=== PATIENT | female | born 1975 ===

== ENCOUNTER 2016-07-26 20:38 | Emergency (ER) | payer MEDICAID, OTHER ==
[2016-07-26 20:57] VITALS: BMI 32.9
[2016-07-26 20:59] VITALS: TEMP 98.3
[2016-07-26] MEDS ORDERED: Sodium Chloride 0.9% 1,000 ML IV STA (21:42)
--- NOTE | 2016-07-26 21:48 | ED PDOC ---
Arrival/HPI - General Historian: Patient - History of Present Illness Time/Duration: 24 hours Symptom Onset: Gradual Symptom Course: Intermittent Quality: Aching, Pressure, Tightness Severity Level: 7 Activities at Onset: Rest Context: Sitting <Kolby Coburn - Last Filed: 07/26/16 21:52> <KavitaDoug - Last Filed: 07/26/16 22:53> - General Chief Complaint: Headache Time Seen by Provider: 07/26/16 21:12 - History of Present Illness Narrative History of Present Illness (Text): 07/26/16 21:44 40 F with PMHx of migraines presents to [facility] [place] ED with complaints of migraine with associated n/v and photophobia. Pt describes that she has similar episodes of migraines 1-2/week, however she became concerned when her face became red and "tight", a sensation she has not experienced with her migraines, prompting her to seek medical attention. Pt claims her headache is predominately located in the posterior of her head and radiates to the front. Pt reports that she usually takes Tylenol or Excedrin for symptomatic relief, however has not alleviated her symptoms at this time. Pt admits to photophobia, nausea and total of 3 episodes of emesis. Pt denied fever, chills, loc, focal neurological deficits, weakness, blurry vision, lacrimation, sob, chest pain, palpitations, abdominal pains, d/c or urinary symptoms. PMD: Dr. Plascencia (Kolby Coburn) Past Medical History - Infectious Disease Hx of Infectious Diseases: None - Tetanus Immunization Tetanus Immunization: Unknown - Past Medical History Past Medical History: No Previous - Cardiac Hx Cardiac Disorders: No - Pulmonary Hx Respiratory Disorders: No - Neurological Hx Migraine: Yes - HEENT Hx HEENT Disorder: No - Renal Hx Renal Disorder: No - Endocrine/Metabolic Hx Endocrine Disorders: No - Hematological/Oncological Hx Blood Disorders: No - Integumentary Hx Dermatological Disorder: No - Musculoskeletal/Rheumatological Hx Musculoskeletal Disorders: No - Gastrointestinal Hx Gastrointestinal Disorders: No - Genitourinary/Gynecological Hx Genitourinary Disorders: No - Psychiatric Hx Psychophysiologic Disorder: No Hx Depression: No Hx Emotional Abuse: No Hx Physical Abuse: No Hx Substance Use: No - Past Surgical History Past Surgical History: No Previous - Anesthesia Hx Anesthesia: No Hx Anesthesia Reactions: No Hx Malignant Hyperthermia: No - Suicidal Assessment Feels Threatened In Home Enviroment: No <Kolby Coburn - Last Filed: 07/26/16 21:52> Family/Social History Family/Social History: No Known Family HX Smoking Status: Never Smoked Hx Alcohol Use: No Hx Substance Use: No Hx Substance Use Treatment: No <Kolby Coburn - Last Filed: 07/26/16 21:52> Allergies/Home Meds <Kolby Coburn - Last Filed: 07/26/16 21:52> <Doug Walls - Last Filed: 07/26/16 22:53> Allergies/Adverse Reactions: Allergies No Known Allergies Allergy (Verified 03/16/14 19:49) Review of Systems - Review of Systems Constitutional: absent: Fatigue, Weight Change, Fevers Eyes: Photophobia. absent: Vision Changes ENT: absent: Hearing Changes, Tinnitus, Rhinorrhea Respiratory: absent: SOB, Cough, Sputum Cardiovascular: absent: Chest Pain, Palpitations, Edema, Syncope Gastrointestinal: Nausea, Vomiting. absent: Abdominal Pain, Stool Changes, Constipation, Diarrhea Genitourinary Female: absent: Dysuria, Frequency, Hematuria Skin: absent: Rash, Pruritis Neurological: Headache. absent: Dizziness, Focal Weakness, Gait Changes, Speech Changes, Facial Droop Endocrine: absent: Diaphoresis <Kolby Coburn - Last Filed: 07/26/16 21:52> Physical Exam Temperature: Afebrile Blood Pressure: Normal Pulse: Regular Respiratory Rate: Normal Appearance: Positive for: Well-Appearing, Non-Toxic, Comfortable Pain Distress: None Mental Status: Positive for: Alert and Oriented X 3 - Systems Exam Head: Present: Atraumatic, Normocephalic Pupils: Present: PERRL Extroacular Muscles: Present: EOMI Conjunctiva: Present: Normal Mouth: Present: Moist Mucous Membranes Neck: Present: Normal Range of Motion Respiratory/Chest: Present: Clear to Auscultation, Good Air Exchange. No: Respiratory Distress, Accessory Muscle Use Cardiovascular: Present: Regular Rate and Rhythm, Normal S1, S2. No: Murmurs Abdomen: Present: Normal Bowel Sounds. No: Tenderness, Distention, Peritoneal Signs Upper Extremity: Present: Normal Inspection. No: Cyanosis, Edema Lower Extremity: Present: Normal Inspection. No: Edema Neurological: Present: GCS=15, CN II-XII Intact, Speech Normal Skin: Present: Warm, Dry, Normal Color. No: Rashes Psychiatric: Present: Alert, Oriented x 3, Normal Insight, Normal Concentration <Kolby Coburn - Last Filed: 07/26/16 21:52> Vital Signs Temp Pulse Resp BP Pulse Ox 07/26/16 21:40 81 18 129/81 99 07/26/16 20:57 98.3 F 79 16 100 Medical Decision Making <Kolby Coburn - Last Filed: 07/26/16 21:52> <Doug Walls - Last Filed: 07/26/16 22:53> ED Course and Treatment: 07/26/16 21:50 40 F with pMHx of migraines presents with a migraine. - CBC - CMP - UA - EKG - CTH - IVF - Toradol - Reglan - Reassess and dispo (Kolby Coburn) 07/26/16 21:55 Patient Seen With Resident: In agreement with resident note which contains more details about the patient. Patient was seen and evaluated with resident. Came up with plan and treatment together. Patient has prior history of migraine headaches. Patient states since she was a child she developed posterior headaches, radiating to the front. Patient states today's headache was typical of past headaches except with facial swelling. Patient states the facial swelling has since resolved, but reports persistent headache. Given the change in the character of the headache, will get Head CT, IV fluids, Toradol, Reglan, and check labs. Patient currently afebrile and neurologically intact. 07/26/16 22:50 Re-examination. Headache completely resolved. No fever. No trauma. No swelling. No neuro deficits. CT unremarkable for acute process as per radiologist. Have discussed findings and treatment plan with patient, advised follow-up with PMD and neurology. (Doug Walls) - Lab Interpretations Lab Results: 07/26/16 21:56 07/26/16 21:56 Lab Results 07/26/16 21:56: WBC 9.7 D, RBC 3.94, Hgb 10.4 L, Hct 32.3 L, MCV 82.0, MCH 26.4 , MCHC 32.2, RDW 13.8, Plt Count 334, MPV 10.1, Gran % 61.2, Lymph % (Auto) 30.7 , Erath % (Auto) 6.9 H, Eos % (Auto) 0.8 L, Baso % (Auto) 0.4, Gran # 5.93, Lymph # 3.0, Erath # 0.7 H, Eos # 0.1, Baso # 0.04, Sodium 141, Potassium 3.7, Chloride 104, Carbon Dioxide 29, Anion Gap 12, BUN 17, Creatinine 0.9, Est GFR ( Amer) > 60, Est GFR (Non-Af Amer) > 60, Random Glucose 120 H, Calcium 8.6, Total Bilirubin 0.2, AST 21, ALT 19, Alkaline Phosphatase 73, Total Protein 7.2, Albumin 3.6, Globulin 3.6, Albumin/Globulin Ratio 1.0 L 07/26/16 21:42: Urine Color yellow, Urine Appearance Clear, Urine pH 6.0, Ur Specific Hyder 1.025, Urine Protein Trace H, Urine Glucose (UA) Negative, Urine Ketones Negative, Urine Blood Large H, Urine Nitrate Negative, Urine Bilirubin Negative, Urine Urobilinogen 0.2, Ur Leukocyte Esterase Negative, Urine RBC Tntc, Urine WBC 2 - 5, Ur Epithelial Cells 6 - 8 - RAD Interpretation Radiology Orders: 07/26/16 21:39 HEAD W/O CONTRAST [CT] Stat - Medication Orders Current Medication Orders: Discontinued Medications Sodium Chloride (Sodium Chloride 0.9%) 1,000 mls @ 999 mls/hr IV .Q1H1M STA Stop: 07/26/16 22:42 Last Admin: 07/26/16 22:03 Dose: 999 MLS/HR eMAR Start Stop Document 07/26/16 22:03 SD (Rec: 07/26/16 22:03 SD [id number]) Intravenous Solution Start Date 07/26/16 Start Time 22:03 Ketorolac Tromethamine (Toradol) 30 mg IVP STAT STA Stop: 07/26/16 21:40 Last Admin: 07/26/16 22:02 Dose: 30 MG IVP Administration Document 07/26/16 22:02 SD (Rec: 07/26/16 22:03 SD [id number]) Charges for Administration # of IVP Administrations 1 Metoclopramide HCl (Reglan) 10 mg IVP STAT STA Stop: 07/26/16 21:40 Last Admin: 07/26/16 22:02 Dose: 10 MG IVP Administration Document 07/26/16 22:02 SD (Rec: 07/26/16 22:02 SD [id number]) Charges for Administration # of IVP Administrations 1 Disposition/Present on Arrival - Present on Arrival Any Indicators Present on Arrival: No History of DVT/PE: No History of Uncontrolled Diabetes: No Urinary Catheter: No History of Decub. Ulcer: No History Surgical Site Infection Following: None <Kolby Coburn - Last Filed: 07/26/16 21:52> - Present on Arrival Any Indicators Present on Arrival: No - Disposition Have Diagnosis and Disposition been Completed?: Yes Disposition Time: 22:51 Patient Plan: Discharge <Doug Walls - Last Filed: 07/26/16 22:53> - Disposition Diagnosis: Headache Disposition: HOME/ ROUTINE Patient Problems: Current Active Problems Problem Status Diagnosed Migraine Acute Condition: GOOD Discharge Instructions (ExitCare): Acute Headache (ED) Additional Instructions: For any return of headache, any facial swelling, any lip or tongue swelling, any rash, any shortness of breath, any visual symptoms, any numbness or weakness , any fever, any change or worsening of any symptoms, get rechecked immediately. Follow-up with your primary care doctor as well as a neurologist for your history of headaches. Prescriptions: Metoclopramide [Reglan] 10 mg PO BID PRN #8 tab PRN Reason: Headache Referrals: Josette Jacobo MD [Primary Care Provider] - Follow up with primary Alfred Arreola MD [Staff Provider] - Follow up with primary
[2016-07-26 21:57] LABS: ADD MANUAL DIFF? NO
[2016-07-26 22:00] LABS: BASO # 0.04 K/mm3 (0.0-2.0); BASO % 0.4 % (0.0-3.0); EOS # 0.1 (0.0-0.7); EOS % 0.8 % (1.5-5.0); GRAN # 5.93 (1.4-6.5); GRAN % 61.2 % (50.0-68.0); HEMATOCRIT 32.3 % (36.0-48.0); LYMPH % 30.7 % (22.0-35.0); MEAN CORPUSCULAR HEMOGLOBIN 26.4 pg (25.0-35.0); MEAN CORPUSCULAR HGB CONC 32.2 g/dl (31.0-37.0); MEAN PLATELET VOLUME 10.1 fl (7.0-11.0); MONO # 0.7 (0.1-0.6); MONO % 6.9 % (1.0-6.0); PLATELET COUNT 334 10^3/uL (120.0-450.0); RED CELL DISTRIBUTION WIDTH 13.8 % (11.5-14.5); WHITE BLOOD COUNT 9.7 10^3/ul (4.5-11.0)
[2016-07-26 22:07] LABS: URINE BILIRUBIN NEGATIVE (NEGATIVE); URINE BLOOD LARGE (NEGATIVE); URINE GLUCOSE (UA) NEGATIVE (NEGATIVE); URINE KETONE NEGATIVE (NEGATIVE); URINE LEUKOCYTE ESTERASE NEGATIVE Leu/uL (NEGATIVE); URINE PROTEIN TRACE mg/dL (<30 mg/dL); URINE UROBILINOGEN 0.2 E.U./dL (<1 E.U./dL)
[2016-07-26 22:10] LABS: ALKALINE PHOSPHATASE 73 U/L (38-133); ALT/SGPT 19 U/L (7-56); AST/SGOT 21 U/L (15-39); BILIRUBIN,TOTAL 0.2 mg/dL (0.2-1.3); BLOOD UREA NITROGEN 17 mg/dL (7-21); CALCIUM 8.6 mg/dL (8.4-10.5); CARBON DIOXIDE 29 mmol/L (21-33); CHLORIDE 104 mmol/L (98-107); GFR AFRICAN-AMERICAN > 60; GLUCOSE,RANDOM 120 mg/dL (70-110); POTASSIUM 3.7 mmol/L (3.6-5.0); SODIUM 141 mmol/L (132-148); TOTAL PROTEIN 7.2 g/dL (5.8-8.3)
[2016-07-26 22:26] LABS: URINE APPEARANCE CLEAR (CLEAR)
[2016-07-26 22:27] LABS: URINE RBC TNTC /hpf (0-2)
--- NOTE | 2016-07-26 22:46 | CT ---
EXAM: CT Head Without Intravenous Contrast CLINICAL HISTORY: 40 years old, female; Pain; Headache; Headache not specified TECHNIQUE: Axial computed tomography images of the head/brain without intravenous contrast. This CT exam was performed using one or more of the following dose reduction techniques: automated exposure control, adjustment of the mA and/or kV according to patient size, and/or use of iterative reconstruction technique. COMPARISON: No relevant prior studies available. FINDINGS: Brain: No intracranial hemorrhage. No mass. No definite edema. Ventricles: No hydrocephalus. Bones/joints: No acute fracture. Soft tissues: Unremarkable. Sinuses: Tiny RIGHT sphenoid retention cyst. Mastoid air cells: No mastoid effusion. Orbits: Unremarkable as visualized. IMPRESSION: 1. No acute intracranial abnormality. 2. Incidental/non-acute findings are described above.
[2016-07-26 23:05] VITALS: BP 113/60; PULSE 89; RESP 16; O2SAT 98
--- NOTE | 2016-07-27 12:51 | CARD ---
APPROVED REPORT EKG Measurement Heart [id number] <Conclusion> Normal sinus rhythm with sinus arrhythmia
== END 2016-07-26 23:05 | disposition home or self-care (01) ==
LOC: ED 20:38
DX: R51 Headache (principal)
CPT/HCPCS: 70450; 80053; 81001; 85025; 93005; 96374; 96375; 99285; J1885; J2765; J7040